=== PATIENT | female | born 1935 | race African-American/Black ===

== ENCOUNTER → 2016-06-15 | Day surgery (SDC) | payer MEDICARE, MEDICAID ==
--- NOTE | 2016-06-11 11:09 | Pre-Procedure Note/Attestation ---
Pre-Procedure Note/Attestation Complete Prior to Procedure Planned Procedure: left Procedure Narrative: phaco with IOL Indications for Procedure Pre-Operative Diagnosis: cataract Attestation I attest that I discussed the nature of the procedure; its benefits; risks and complications; and alternatives (and the risks and benefits of such alternatives ), prior to the procedure, with the patient (or the patient's legal truck sales representative). I attest that, if there was a reasonable possibility of needing a blood transfusion, the patient (or the patient's legal truck sales representative) was given the [facility] standardized written summary, pursuant to the [place] Blood Safety Act ([place] Health and Safety Code # 1645, as amended). I attest that I re-evaluated the patient just prior to the surgery and that there has been no change in the patient's H&P, except as documented below: CLAUDE BASS Jun 11, 2016 11:09
--- NOTE | 2016-06-11 14:03 | Opthalmology H&P ---
Ophthalmology H&P H&P Chief Complaint: decreased vision in left eye HPI Vision Affects Ability to: read, focus/use eyes together, manage personal affairs HPI Narrative blurry vision Exam Visual Acuity: OD: 20/30 OS: 20/50 Tension: OD: 14 OS: 12 Eye Exam: normal OU: anterior chambers, corneas, external exam, fundus exam, levator function, marginal reflex distance, palpebral fissure-width, findings: lens - OD: iol OS: ns Assessment/Plan Diagnosis: (1) Cataract Treatment Plan: cataract extraction w/ lens implant Goals of Treatment: improvement of vision, enhance quality of life Attestation Attestation The risks and benefits of the surgery as well as alternative procedures were explained to the patient in detail. CLAUDE BASS Jun 11, 2016 14:03
[2016-06-15] VITALS (8 sets, daily range): BP systolic 160–182; BP diastolic 79–98
[~2016-06-15] VITALS: Ht 172.7 cm; Wt 68.0 kg
[~2016-06-15] MED LIST: Akten 3.5% 1ml Btl LEFT EYE ONE; BSS 15ml BTL ONE; BSS 500ml btl ONE; Dexamethasone 4mg/ml vial ONE; DiphenhydrAMINE 50mg/ml Inj IVP PRN; EPINEPHrine 1mg/1ml Amp ONE; LR 1000ml 1,000 ML IVLG SCH; LR 1000ml ONE; Labetalol 5mg/ml 20ml vial IV PRN; Lidocaine 1% MPF 10mg/ml 5ml ONE; Maxitrol Opth Oint 3.5gm ONE; NKM; Povidone-Iodine 5% opth solution ONE; Pred Forte 1% Opth Susp 1ml ONE; Sodium Hyaluronate 14 mg/ml 0.85ml ONE; Tobramycin Op Soln 0.3% LEFT EYE ONE; fentaNYL 100 mcg/2 mL IV ONE
[2016-06-15] MEDS: Tropicamide 1% Opth Soln LEFT EYE SCH ×3 (08:37→09:01)
[2016-06-15] MEDS: Phenylephrine 2.5% Op Soln LEFT EYE SCH ×3 (08:38→09:01)
[2016-06-15] MEDS: Diclofenac Sod 0.1% Op Soln LEFT EYE SCH ×3 (08:40→09:01)
[2016-06-15] MEDS: Cyclopentolate 1% Opth Sol LEFT EYE SCH ×3 (08:40→09:01)
--- NOTE | 2016-06-15 09:03 | Anethesia Preoperative Eval ---
Anesthesia Pre-op PMH/ROS General Date of Evaluation: Jun 15, 2016 Anesthesiologist: Case ASA Score: ASA 2 Mallampati Score Class I : Soft palate, uvula, fauces, pillars visible Class II: Soft palate, uvula, fauces visible Class III: Soft palate, base of uvula visible Class IV: Only hard plate visible Mallampati Classification: Class I Surgeon: Alfreda Diagnosis: Left cataract Surgical Procedure: Left cataract extraction with IOL Anesthesia History: none Family History: no anesthesia problems Allergies: Coded Allergies: No Known Allergies (Unverified , 12/11/15) Medications: see eMAR Past Medical History Cardiovascular: Reports: HTN Pulmonary: Denies: COPD, GISSELLE, asthma, other Gastrointestinal/Genitourinary: Reports: GERD, Denies: CRI, ESRD, other Neurologic/Psychiatric: Denies: CVA, TIA, dementia, depression/anxiety, other Endocrine: Denies: DM, hypothyroidism, other, steroids HEENT: Reports: cataract (L) Hematology/Immune: Reports: anemia - chronic, Denies: DVT, bleeding disorder, other Musculoskeletal/Integumentary: Reports: OA, Denies: DDD, DJD, RA, edema, other PSxH Narrative: right cataract, MEGAN, Right shoulder arthroscopoy, bilateral bunionectomy, bilateral TKR Anesthesia Pre-op Phys. Exam Physician Exam see chart Constitutional: NAD Cardiovascular: RRR Respiratory: CTA Airway Exam Mallampati Score: Class II MO: full ROM: full Anesthesia Pre-op A/P Labs see chart Studies Pre-op Studies: EKG - sr Risk Assessment & Plan Assessment: ASA II Plan: MAC Status Change Before Surgery: No Pre-Antibiotics Drug: N/A ONEIL HAWTHORNE M.D. Jun 15, 2016 09:03
--- NOTE | 2016-06-15 09:04 | Immediate Post-Op Evaluation ---
Immediate Post-Op Evalulation Immediate Post-Op Evalulation Procedure: Left cataract extraction with IOL Date of Evaluation: Jun 15, 2016 Time of Evaluation: 10:27 IV Fluids: 200 Blood Products: 0 Estimated Blood Loss: 0 Urinary Output: 0 Blood Pressure Systolic: 162 Blood Pressure Diastolic: 88 Pulse Rate: 54 Respiratory Rate: 16 O2 Sat by Pulse Oximetry: 100 Temperature (Fahrenheit): 98.1 Pain Score (1-10): 0 Nausea: No Vomiting: No Complications 0 Patient Status: awake, reacts, patent, none Hydration Status: adequate Drug: N/A ONEIL HAWTHORNE M.D. Jun 15, 2016 09:04
--- NOTE | 2016-06-15 09:05 | 48 Hour Post Anesthesia Eval ---
Post Anesthesia Evaluation Procedure: Left cataract extraction with IOL Date of Evaluation: Jun 15, 2016 Blood Pressure Systolic: 159 0: 84 Pulse Rate: 84 Respiratory Rate: 16 Temperature (Fahrenheit): 100 Airway: patent Nausea: No Vomiting: No Pain Intensity: 0 Hydration Status: adequate Cardiopulmonary Status: at baseline Mental Status/LOC: patient returned to baseline Post-Anesthesia Complications: 0 Follow-up care needed: ready to discharge ONEIL HAWTHORNE M.D. Jun 15, 2016 09:05
--- NOTE | 2016-06-15 14:55 | Brief Operative Note ---
Immediate Post Operative Note Operative Note Chief Complaint: blurry vision Pre-op Diagnosis: cataract, OS Procedure: Phaco with IOL, OS Post-op Diagnosis: same as pre-op Findings: consistent w/pre-op dx studies Surgeon: Alfreda Anesthesiologist: Keren Anesthesia: MAC Specimen: none Complications: none Estimated Blood Loss: none Drains: none Implant(s) used?: Yes CLAUDE BASS Jun 15, 2016 14:55
--- NOTE | 2016-06-15 15:43 | Operative Note - PDOC ---
Operative Note Operative Note Date of Operation/Procedure: Jun 15, 2016 Chief Complaint: blurry vision Pre-op Diagnosis: cataract, OS Procedure: Phaco with IOL, OS Post-op Diagnosis: same as pre-op Operative Findings: consistent w/pre-op dx studies Surgeon: Alfreda Anesthesiologist: Keren Anesthesia: MAC Specimen: none Complications: none Estimated Blood Loss: none Drains: none Implant(s) used?: Yes Indications for Procedure cataract Description of Procedure This patient has been complaining visually significant cataract in the affected eye with the best corrected visual acuity under moderate glare conditions worse. The patient complains of difficulties with glare in performing activities of daily living and wants to manage personal affairs with comfort and accuracy and see well enough to move with safety at home and outdoors. ~~~ The risks, benefits and alternatives of the procedure were discussed with the patient in the office prior to scheduling surgery. All questions from the patient were answered after the surgical procedure was explained in detail. The risks of the procedure as explained to the patient include, but are not limited to, pain, infection, bleeding, loss of vision, retinal detachment, need for further surgery, loss of lens nucleus, double vision, etc. Alternative procedures were discussed which include, to do nothing or seek a second opinion. Informed consent for this procedure was obtained from the patient. The patient was referred to a primary care physician for a cardiopulmonary clearance prior to surgery, after proper evaluation was done patient was properly scheduled for outpatient surgery. The patient was brought to the operating room where the anesthesiologist established I.V. lines and cardiac monitoring leads. Mild intravenous sedation was administered.~~ The patient was then prepared with a 5% solution of povidone -iodine to the conjunctival fornix and lashes, and a 10% solution of povidone- iodine to the lids and periorbital skin. The patient was then draped in the usual sterile fashion. A lid speculum was then placed in the operative eye. A keratome blade was then used to create a biplanar incision into the anterior chamber. Viscoelastics was then instilled into the anterior chamber. A capsulorrhexis was then fashioned with an utrata forceps followed by a BSS and a cannula were then used to hydrodissect and hydro delineate the lens. Paracentesis incision was made at 3 o'clock with sharp blade. The phacoemulsification unit, after being properly adjusted~ and tested, was then used to emulsify the nucleus. Residual cortical material was aspirated with the irrigation and aspiration unit. Healon was then instilled into the anterior chamber. The corneal wound was then enlarged to the size of the optic with the beverly keratome blade. The intraocular lens was then inspected for right~ power and size~ and thought to be satisfactory. Then the lens was gently placed in the capsular bag. Positioning within the capsular bag was confirmed by direct visualization. Optic centration was accomplished with a Sinskey hook. Viscoelastics~ was removed from the anterior chamber using the irrigation and aspiration unit. The corneal wound was then tested for leaks and none were found. The lid speculum were then removed. Sponge and needle counts were correct. An eye patch and shield were placed over the operative eye. The patient was taken to the recovery room in stable condition. There were no complications. The patient tolerated the procedure well. The patient was then transferred to the ambulatory surgery unit in stable and satisfactory condition , was given detailed written instructions and asked to follow up~ in the office the next day. ~ ~ Dictated & Transcribed: [facility] Lisbeth MARTINI JAMES Jun 15, 2016 15:43
== END | disposition home or self-care (01) ==
LOC: SUR 06:59
DX: H26.9 Unspecified cataract (principal); K21.9 Gastro-esophageal reflux disease without esophagitis; D64.9 Anemia, unspecified; M15.9 Polyosteoarthritis, unspecified; I10 Essential (primary) hypertension; E78.5 Hyperlipidemia, unspecified; R60.9 Edema, unspecified; N32.81 Overactive bladder; I83.90 Asymptomatic varicose veins of unspecified lower extremity; E74.39 Other disorders of intestinal carbohydrate absorption; J30.2 Other seasonal allergic rhinitis; Z90.710 Acquired absence of both cervix and uterus; Z96.653 Presence of artificial knee joint, bilateral
CPT/HCPCS: 66984; J0171; J1100; J3010; J3370; J7120; V2632; 94003; 94150